=== PATIENT | female | born 1970 | race Caucasian/White ===

== ENCOUNTER → 2018-04-07 15:01 | Outpatient (CLI) | payer OTHER, SELFPAY ==
--- NOTE | 2018-04-07 | DI.MG.S_ITS ---
BILATERAL DIGITAL SCREENING MAMMOGRAM 3D/2D WITH CAD WITH AUGMENTATION: 04/07/2018 CLINICAL: Patient presents for routine screening. S/P bilateral augmentation. Family history of breast cancer. Comparison is made to exams dated: 02/04/2015 mammogram and 12/12/2011 mammogram - [facility]. The tissue of both breasts is heterogeneously dense. This may lower the sensitivity of mammography. Current study was also evaluated with a Computer Aided Detection (CAD) system. Bilateral breast implants are intact. No significant masses, calcifications, or other findings are seen in either breast. There has been no significant interval change. IMPRESSION: NEGATIVE There is no mammographic evidence of malignancy. A 1 year screening mammogram is recommended. This exam was interpreted at Station ID: [id number]. NOTE: For mammograms, a report in lay terms will be sent to the patient. Approximately 15% of breast malignancies will not be visualized mammographically. In the management of a palpable breast mass, a negative mammogram must not discourage biopsy of a clinically suspicious lesion. Electronically Signed By: Luther chowdary/frannie:04/07/2018 17:27:03 copy to: Benjamin Nails letter sent: Normal Exam ACR BI-RADS Category 1: Negative 3341F
== END ==
PROVIDERS: PCP Physician Assistant; Visit Provider Physician Assistant
DX: Z12.31 Encounter for screening mammogram for malignant neoplasm of breast (principal); Z80.3 Family history of malignant neoplasm of breast; Z98.82 Breast implant status
CPT/HCPCS: 77063; 77067

== ENCOUNTER → 2018-04-25 11:04 | Outpatient (CLI) | payer OTHER, SELFPAY | PROVIDERS: PCP Physician Assistant; Visit Provider Physician Assistant | DX: R19.4 Change in bowel habit (principal) | CPT/HCPCS: 87015; 87045; 87177; 87427; 87493; 87899 ==

== ENCOUNTER 2018-05-22 08:37 | Emergency (ER) | payer OTHER, SELFPAY ==
[2018-05-22 08:47] VITALS: BP 131/76; PULSE 76; RESP 16; TEMP 36.6; O2SAT 100; BMI 29.7
[2018-05-22 09:11] LABS: Bacteria Urine Moderate (10-30); Culture Indicated Urine Specimen Cultured; RBC Urine 5-10/HPF (0-5/HPF); WBC Urine 10-30/HPF (0-5/HPF)
--- NOTE | 2018-05-22 09:25 | ED_ITS ---
HPI - General Adult General Chief complaint: Dizziness Stated complaint: Dizzy,nausea Time Seen by Provider: 05/22/18 08:47 Source: patient Mode of arrival: ambulatory Limitations: no limitations History of Present Illness HPI narrative: patient is an otherwise healthy 48-year-old female here for evaluation of not feeling well and lightheadedness. She states that it started this morning. she states that when she moves her head around she feels like she is going to fall over. Denies any room spinning sensation. Generally just does not feel well. Started mesalamine last week for treatment of ulcerative col itis. She also states she is very thirsty. No change in bowel habits. She does have diarrhea. Does not have any dysuria. She states that she has had urinary tract infections in the past and she does not feel like she has 1 now. Related Data Home Medications Medication Instructions Recorded Confirmed dextroamphetamine-amphetamine 15 mg PO DAILY 05/22/18 05/22/18 levonorgestrel-ethinyl estrad 1 tab PO QPM 05/22/18 05/22/18 [Lessina] mesalamine 60 ml [place] BEDTIME 05/22/18 05/22/18 mesalamine [Lialda] 2.4 g PO DAILY 05/22/18 05/22/18 omeprazole 20 mg PO DAILY 05/22/18 05/22/18 Previous Rx's Medication Instructions Recorded valacyclovir 500 mg tablet 500 mg PO BID #10 tab 03/21/18 ondansetron 4 mg PO Q6-8H PRN #10 tab 05/22/18 Allergies Allergy/AdvReac Type Severity Reaction Status Date / Time No Known Drug Allergies Allergy Verified 05/22/18 10:10 Review of Systems Constitutional Reports fatigue, Denies fever(s) and Denies frequent falls Eyes Denies blurry vision and Denies diplopia ENT Ears, Nose, Mouth, and Throat: Denies vertigo, Reports dizziness, Denies nasal congestion, Reports disequilibrium, Denies tinnitus, Denies sore throat and Denies throat swelling Cardiovascular Denies chest pain, Denies syncope, Denies palpitations and Denies dyspnea Respiratory Denies cough and Denies dyspnea Gastrointestinal Gastrointestinal: Denies abdominal pain, Denies nausea and Denies vomiting Genitourinary Denies dysuria Musculoskeletal Denies myalgias and Denies arthralgias Integumentary/Breasts Denies rash Neurologic Denies vertigo, Reports dizziness, Denies syncope, Denies frequent falls, Denies paresthesias and Reports disequilibrium Endocrine Reports fatigue and Denies palpitations Hematologic/Lymphatic Denies easy bleeding and Denies easy bruising Allergic/Immunologic Denies throat swelling PFSH Medical History Ulcerative colitis (Acute) Surgical History History of breast augmentation Social History Smoking Status: Never smoker Social History Smoking Status: Never smoker Exam Initial Vital Signs Initial Vital Signs: Vital Signs Temperature 97.8 F 05/22/18 08:47 Pulse Rate 76 05/22/18 08:47 Respiratory Rate 16 05/22/18 08:47 Blood Pressure 131/76 05/22/18 08:47 Pulse Oximetry 100 05/22/18 08:47 Const General: cooperative, healthy appearing, comfortable, well developed, well groomed and No acute distress Orientation: alert, awake and oriented x3 HENMT Head: normal to inspection and normocephalic Ears: TM's normal bilaterally Nose: external nose normal Face and sinus: normal facial exam Mouth: oral mucosae normal Eyes Pupils: PERRL EOM: EOM intact bilaterally Resp Effort & Inspection: normal respiratory effort Auscultation: clear to auscultation bilaterally Cardio Rate: regular rate Rhythm: regular rhythm Pulses: radial pulses present GI Inspection: non-distended Palpation: soft and No tender Skin Rashes: no rashes Neuro General: alert, awake and oriented x3 Cranial Nerves: CN's II-XI intact bilaterally Cognition: normal cognition Speech: speech normal Gait: normal gait Motor: muscle tone normal throughout Sensory Exam: no sensory deficits noted Other: [place]-Hallpike maneuver negative bilateral Extrem General: normal to inspection and capillary refill normal Psych Appearance: grossly normal and well kempt Course Orders Ordered: ED Orders 05/22/18 08:48 EKG-12 Lead Stat 05/22/18 08:56 Urine Culture Stat Urine Microscopic Stat 05/22/18 10:10 Basic Metabolic Panel Stat Complete Blood Count AUTO DIFF Stat Test Serum,Qual Stat 05/22/18 11:32 CT head/brain wo con Stat 05/22/18 11:34 Influenza A and B by PCR Rapid Stat Discontinued Medications Sodium Chloride (Normal Saline 0.9%) 1,000 mls @ 1,000 mls/hr IV BOLUS ONE Stop: 05/22/18 10:37 Last Infusion: 05/22/18 11:25 Dose: 0 mls/hr Admin: 05/22/18 10:11 Dose: 1,000 mls/hr Meclizine HCl (Antivert) 25 mg PO NOW ONE Stop: 05/22/18 09:39 Last Admin: 05/22/18 10:11 Dose: 25 mg Ondansetron HCl (Zofran) 4 mg IV NOW ONE Stop: 05/22/18 11:27 Last Admin: 05/22/18 11:57 Dose: 4 mg Vital Signs - 8 hr 05/22/18 08:47 05/22/18 09:51 05/22/18 12:01 Temperature 97.8 F Pulse Rate 76 68 73 Respiratory Rate 16 17 19 Blood Pressure 131/76 Blood Pressure [Left Arm] 149/87 H 118/74 Pulse Oximetry 100 100 100 Medical Decision Making Lab Data Lab results reviewed: Yes I reviewed the patient's lab results. Result diagrams: 05/22/18 10:10 05/22/18 10:10 Lab Results 05/22/18 05/22/18 05/22/18 Range/Units 08:56 10:10 10:10 WBC 5.2 (4.5-11.0) X10^3/uL RBC 4.42 (4.0-5.2) X10^6/uL Hgb 14.5 (12.0-16.0) g/dL Hct 42.4 (36-46) % MCV 95.9 (80-100) fL MCH 32.7 (26-34) PG MCHC 34.1 (30-36) % RDW 12.6 (11.6-14.8) % Plt Count 306 (150-400) X10^3/uL Neut % (Auto) 68.2 (50-75) % Lymph % (Auto) 23.8 L (25-40) % [place] % (Auto) 5.9 (3-14) % Eos % (Auto) 1.6 L (2-4) % Baso % (Auto) 0.5 (0-2) % Neut # (Auto) 3600 (0968-2010) /uL Lymph # (Auto) 1200 (6848-6098) /uL [place] # (Auto) 300 (0-900) /uL Eos # (Auto) 100 (0-450) /uL Baso # (Auto) 0 (0-100) /uL Sodium 137 (137-145) mmol/L Potassium 4.0 (3.4-5.1) mmol/L Chloride 102 (98-107) mmol/L Carbon Dioxide 24 (22-32) mmol/L BUN 16 (7-17) mg/dL Creatinine 0.70 (0.52-1.04) mg/dL Estimated GFR > 60.0 (>60) mL/min BUN/Creatinine Ratio 22.9 H (6-22) Glucose 105 H (70-100) mg/dL Calcium 9.0 (8.4-10.2) mg/dL Serum , Qual (Negative) Urine RBC 5-10/hpf H (0-5/HPF) Urine WBC 10-30/hpf H (0-5/HPF) Urine Bacteria Moderate (10-30) H (None) Ur Culture Indicated? Specimen cultured Influenza A & B (PCR) (Negative) 05/22/18 05/22/18 Range/Units 10:10 11:34 WBC (4.5-11.0) X10^3/uL RBC (4.0-5.2) X10^6/uL Hgb (12.0-16.0) g/dL Hct (36-46) % MCV (80-100) fL MCH (26-34) PG MCHC (30-36) % RDW (11.6-14.8) % Plt Count (150-400) X10^3/uL Neut % (Auto) (50-75) % Lymph % (Auto) (25-40) % [place] % (Auto) (3-14) % Eos % (Auto) (2-4) % Baso % (Auto) (0-2) % Neut # (Auto) (0923-2522) /uL Lymph # (Auto) (1818-5484) /uL [place] # (Auto) (0-900) /uL Eos # (Auto) (0-450) /uL Baso # (Auto) (0-100) /uL Sodium (137-145) mmol/L Potassium (3.4-5.1) mmol/L Chloride (98-107) mmol/L Carbon Dioxide (22-32) mmol/L BUN (7-17) mg/dL Creatinine (0.52-1.04) mg/dL Estimated GFR (>60) mL/min BUN/Creatinine Ratio (6-22) Glucose (70-100) mg/dL Calcium (8.4-10.2) mg/dL Serum , Qual Negative (Negative) Urine RBC (0-5/HPF) Urine WBC (0-5/HPF) Urine Bacteria (None) Ur Culture Indicated? Influenza A & B (PCR) Negative (Negative) Point of Care Testing Test Results Negative Urine Dip Bedside Urine Glucose Negative Bedside Urine Bilirubin + 1 Bedside Urine Ketone - Negative Urine Specific [place] 1.030 Bedside Urine Occult Blood ++ Bedside Urine pH 5.5 Bedside Urine Protein +/- 15 Bedside Urine Urobilinogen - Negative Bedside Urine Nitrite - Negative Bedside Urine Leukocytes +++ 500 Esterase Point of care testing: Point of Care Testing Test Results Negative Urine Dip Bedside Urine Glucose Negative Bedside Urine Bilirubin + 1 Bedside Urine Ketone - Negative Urine Specific [place] 1.030 Bedside Urine Occult Blood ++ Bedside Urine pH 5.5 Bedside Urine Protein +/- 15 Bedside Urine Urobilinogen - Negative Bedside Urine Nitrite - Negative Bedside Urine Leukocytes +++ [address] scan - head: Radiologist's impression: Patient: Michelle Santos AMR#: [id number] : 1970Acct:[id number] Age/Sex: 48 / FDate of Service: 05/22/18 Loc: ED Accession Number: [id number] Procedure: CT head/brain wo con Ordering Provider: Keegan Eaton D.O. PROCEDURE: CT HEAD/BRAIN WO CON INDICATIONS: headache TECHNIQUE: Noncontrast 4.5 mm thick angled axial sections acquired from the foramen magnum to the vertex, with coronal and sagittal reformats. For radiation dose reduction, the following was used: automated exposure control, adjustment of mA and/or kV according to patient size. COMPARISON: None. FINDINGS: Image quality: Excellent. CSF spaces: Basal cisterns are patent. No extra-axial fluid collections. Ventricles are normal in size and shape. Brain: No midline shift. No intracranial masses or hemorrhage. Frankel-white matter interface is normal. Skull and face: Calvarium and visualized facial bones are intact, without suspicious lesions. Sinuses: Visualized sinuses and mastoids are clear. IMPRESSION: Normal for age, source of current headache symptoms is not seen. Dictated by: Channing Crouch M.D. on 05/22/2018 at 11:47 Approved by: Channing Crouch M.D. on 05/22/2018 at 11:47 ECG Data Attestation: I personally reviewed and interpreted this ECG as follows: Prior ECG tracings: not available for review Interpretation: sinus rhythm ventricular rate is 65 normal axis normal QRS Normal QTC no ST T wave changes MDM Narrative Medical decision making narrative: patient with a nonfocal neurologic exam. Head CT is unremarkable. Labs unremarkable. Urinalysis is somewhat concerning for urinary tract infection however the patient states that she has had urinary tract infections in the past and this does not feel like a urinary tract infection. Will hold on antibiotics for now and wait for a urine culture to return. Informed her that if the culture is positive we would call in a prescription for antibiotics for her. I have low suspicion for central neurologic process. Will hold on further testing for now to include a lumbar puncture. Patient was given return precautions. She expressed understanding and agreement with plan. Discharge Plan Departure Patient Disposition: Home Clinical Impression: Dizziness Instructions: DI for Dizziness-Nonvertigo Activity Restrictions/Additional Instructions: a urine culture is pending today. We will call you in the next couple days if we need to start Uon antibiotics. Contact your primary care doctor for a fol low-up. Return to the emergency department for any new or worsening symptoms Prescriptions: New ondansetron 4 mg tablet,disintegrating 4 mg PO Q6-8H PRN (Reason: nausea and vomiting) Qty: 10 RF: 0 No Action valacyclovir 500 mg tablet 500 mg PO BID Qty: 10 RF: 3 mesalamine 4 gram/60 mL enema 60 ml [place] BEDTIME RF: 0 levonorgestrel-ethinyl estrad [Lessina] 0.1-20 mg-mcg tablet 1 tab PO QPM RF: 0 omeprazole 20 mg capsule,delayed release(DR/EC) 20 mg PO DAILY RF: 0 dextroamphetamine-amphetamine 15 mg capsule,extended release 24hr 15 mg PO DAILY RF: 0 mesalamine [Lialda] 1.2 gram tablet,delayed release (DR/EC) 2.4 g PO DAILY RF: 0 Referrals: Becki Alvarez PA-C [Primary Care Provider] -
[2018-05-22 09:51] VITALS: BP 149/87; PULSE 68; RESP 17; O2SAT 100
[2018-05-22] MEDS: MECLIZINE HCL 12.5 MG TABLET 25 MG PO (10:11)
[2018-05-22] MEDS: SODIUM CHLORIDE 0.9% 1,000 ML 1000 ML IV (10:11)
[2018-05-22 10:20] LABS: Add Manual Diff / Slide Review NO; Basophils Absolute Auto 0 /uL (0-100); Basophils Percent Auto 0.5 % (0-2); Eosinophils Absolute Auto 100 /uL (0-450); Eosinophils Percent Auto 1.6 % (2-4); Hematocrit 42.4 % (36-46); Hemoglobin 14.5 g/dL (12.0-16.0); Lymphocytes Absolute Auto 1200 /uL (1100-4500); Lymphocytes Percent Auto 23.8 % (25-40); Mean Corpuscular HGB Conc 34.1 % (30-36); Mean Corpuscular Hemoglobin 32.7 PG (26-34); Mean Corpuscular Volume 95.9 fL (80-100); Monocytes Absolute Auto 300 /uL (0-900); Monocytes Percent Auto 5.9 % (3-14); Neutrophils Absolute Auto 3600 /uL (1500-7000); Neutrophils Percent Auto 68.2 % (50-75); Platelet Count 306 X10^3/uL (150-400); Red Blood Cell Count 4.42 X10^6/uL (4.0-5.2); Red Cell Distribution Width 12.6 % (11.6-14.8); White Blood Cell Count 5.2 X10^3/uL (4.5-11.0)
[2018-05-22 10:29] LABS: BUN Creatinine Ratio 22.9 (6-22); Blood Urea Nitrogen 16 mg/dL (7-17); Carbon Dioxide 24 mmol/L (22-32); Chloride 102 mmol/L (98-107); Estimated Glomerular Filt Rate > 60.0 mL/min (>60); Glucose 105 mg/dL (70-100); HEMOLYSIS < 15 (0-50); Sodium 137 mmol/L (137-145)
[2018-05-22 10:47] LABS: Pregnancy Test Serum,Qual Negative (Negative)
--- NOTE | 2018-05-22 11:32 | DI.CT.S_ITS ---
PROCEDURE: CT HEAD/BRAIN WO CON INDICATIONS: headache TECHNIQUE: Noncontrast 4.5 mm thick angled axial sections acquired from the foramen magnum to the vertex, with coronal and sagittal reformats. For radiation dose reduction, the following was used: automated exposure control, adjustment of mA and/or kV according to patient size. COMPARISON: None. FINDINGS: Image quality: Excellent. CSF spaces: Basal cisterns are patent. No extra-axial fluid collections. Ventricles are normal in size and shape. Brain: No midline shift. No intracranial masses or hemorrhage. Frankel-white matter interface is normal. Skull and face: Calvarium and visualized facial bones are intact, without suspicious lesions. Sinuses: Visualized sinuses and mastoids are clear. IMPRESSION: Normal for age, source of current headache symptoms is not seen. Dictated by: Channing Crouch M.D. on 05/22/2018 at 11:47 Approved by: Channing Crouch M.D. on 05/22/2018 at 11:47
[2018-05-22 11:56] LABS: Influenza A and B by PCR Rapid Negative (Negative)
[2018-05-22] MEDS: ONDANSETRON 4 MG/2 ML INJ IV (11:57)
[2018-05-22 12:01] VITALS: BP 118/74; PULSE 73; RESP 19; O2SAT 100
[2018-05-22 12:39] VITALS: TEMP 36.8
[2018-05-22 12:58] VITALS: BP 130/67; PULSE 80; RESP 16; O2SAT 99
== END 2018-05-22 12:58 | disposition home or self-care (01) ==
PROVIDERS: Emergency Provider Emergency Medicine; PCP Physician Assistant
DX: R42 Dizziness and giddiness (principal); I49.8 Other specified cardiac arrhythmias
CPT/HCPCS: 36591; 70450; 80048; 81003; 81015; 81025; 84703; 85025; 87086; 87400; 93005; 93010; 96361; 96374; 99283; 99285; J2405

== ENCOUNTER → 2018-09-15 12:00 | Outpatient (CLI) | payer OTHER, SELFPAY ==
[2018-09-15 12:09] LABS: Bacteria Urine None Seen
[2018-09-15 12:27] LABS: Add Manual Diff / Slide Review NO; Appearance Urine UA CLEAR; Basophils Absolute Auto 0 /uL (0-100); Basophils Percent Auto 0.4 % (0-2); Bilirubin Urine UA NEGATIVE (NEGATIVE); Color Urine UA YELLOW; Eosinophils Absolute Auto 100 /uL (0-450); Eosinophils Percent Auto 2.5 % (2-4); Glucose Urine UA NEGATIVE (Negative); Hematocrit 40.2 % (36-46); Hemoglobin 13.7 g/dL (12.0-16.0); Ketones Urine UA NEGATIVE (NEGATIVE); Leukocyte Esterase Urine UA NEGATIVE (NEGATIVE); Lymphocytes Absolute Auto 1800 /uL (1100-4500); Lymphocytes Percent Auto 30.7 % (25-40); Mean Corpuscular Hemoglobin 32.5 PG (26-34); Mean Corpuscular Volume 95.5 fL (80-100); Monocytes Absolute Auto 400 /uL (0-900); Monocytes Percent Auto 6.1 % (3-14); Neutrophils Absolute Auto 3500 /uL (1500-7000); Neutrophils Percent Auto 60.3 % (50-75); Nitrite Urine UA NEGATIVE (Negative); Occult Blood Urine UA TRACE-INTACT (Negative); Platelet Count 278 X10^3/uL (150-400); Protein Urine UA NEGATIVE (Negative); Red Blood Cell Count 4.21 X10^6/uL (4.0-5.2); Red Cell Distribution Width 12.5 % (11.6-14.8); Urobilinogen Urine UA 0.2 E.U./dL (0.2); White Blood Cell Count 5.8 X10^3/uL (4.5-11.0)
[2018-09-15 12:48] LABS: Culture Indicated Urine Cult Not Indicated; RBC Urine 0-1/HPF (0-5/HPF); Squamous Epithelial Cell Urine 0-1 /HPF (0-5/HPF); WBC Urine 0-1/HPF (0-5/HPF)
[2018-09-15 12:50] LABS: Erythrocyte Sedimentation Rate 2 MM/HR (0-20)
[2018-09-15 13:34] LABS: Alanine Aminotransferase 35 IU/L (9-52); Albumin 4.4 g/dL (3.5-5.0); Albumin Globulin Ratio 1.3 (1.0-2.8); Alkaline Phosphatase 88 U/L (38-126); Aspartate Aminotransferase 38 IU/L (14-36); BUN Creatinine Ratio 21.4 (6-22); Bilirubin Total 0.6 mg/dL (0.2-1.3); Blood Urea Nitrogen 15 mg/dL (7-17); Calcium 9.2 mg/dL (8.4-10.2); Carbon Dioxide 25 mmol/L (22-32); Chloride 105 mmol/L (98-107); Estimated Glomerular Filt Rate > 60.0 mL/min (>60); Globulin 3.4 g/dL (1.7-4.1); Glucose 93 mg/dL (70-100); HEMOLYSIS < 15 (0-50); Potassium 3.9 mmol/L (3.4-5.1); Sodium 141 mmol/L (137-145); Total Protein 7.8 g/dL (6.3-8.2)
[2018-09-15 13:35] LABS: Rheumatoid Factor < 8.6 IU/mL (<12.0)
[2018-09-15 13:57] LABS: TSH w/ Reflex to FT4 1.13 uIU/mL (0.47-4.68)
[2018-09-17 20:43] LABS: ANA Screen, IFA Positive (Negative); ANA Titer 1:40 titer (<1:40)
[2018-09-19 12:09] LABS: CCP Antibodies IgG/IgA 3
== END ==
PROVIDERS: Visit Provider Internal Medicine
DX: M19.90 Unspecified osteoarthritis, unspecified site (principal); R68.83 Chills (without fever); K51.211 Ulcerative (chronic) proctitis with rectal bleeding
CPT/HCPCS: 36415; 80053; 81001; 84443; 85025; 85651; 86038; 86140; 86200; 86430

== ENCOUNTER → 2018-09-17 08:06 | Outpatient (CLI) | payer OTHER, SELFPAY ==
--- NOTE | 2018-09-17 | DI.MRI.S_ITS ---
PROCEDURE: MR HEAD/BRAIN WO/W CON INDICATIONS: NONINTRACTABLE EPISODIC HEADACHE TECHNIQUE: Noncontrast axial T1 spin echo, axial T2 fast spin echo, sagittal and axial FLAIR, coronal T2 fast spin echo, axial gradient echo, axial diffusion and ADC through the brain. After the administration of contrast, axial and coronal 3D VIBE or T1 spin echo with fat saturation through the brain. COMPARISON: None. FINDINGS: Image quality: Excellent. CSF Spaces: Basal cisterns are patent. No extra-axial fluid collections. Ventricles are normal in size and shape. Brain: No midline shift. No intracranial bleeds or masses. No abnormal intracranial enhancement. The brainstem appears normal. Diffusion-weighted images demonstrate no acute ischemic insults. No chronic ischemic insults. Normal intravascular flow voids are present. Skull and face: Calvarial marrow is normal in signal. Orbits appear normal. Sinuses: Mild left maxillary sinus disease. Mastoids clear. IMPRESSION: No abnormal enhancement. No acute intracranial signal abnormality. Mild left maxillary sinus disease. Dictated by: Bertrand Horne M.D. on 09/17/2018 at 10:17 Approved by: Bertrand Horne M.D. on 09/17/2018 at 10:30
== END ==
PROVIDERS: PCP Internal Medicine; Visit Provider Internal Medicine
DX: R51 Headache (principal); J32.0 Chronic maxillary sinusitis
CPT/HCPCS: 70553; A9579

== ENCOUNTER → 2019-06-10 14:29 | Outpatient (CLI) | payer OTHER, SELFPAY ==
--- NOTE | 2019-06-10 14:30 | DI.MRI.S_ITS ---
PROCEDURE: MR CERVICAL SPINE WO CON INDICATIONS: Posterior skull, upper neck pain TECHNIQUE: Noncontrast sagittal T1 spin echo and T2 fast spin echo, sagittal STIR, foraminal oblique sagittal T2 fast spin echo, and axial gradient echo or T2 fast spin echo through the cervical spine. COMPARISON: [facility], US, SOFT TISSUE HEAD OR NECK, 04/03/2013, 12:23. [facility], MR, MR HEAD/BRAIN WO/W CON, 09/17/2018, 8:32. [facility], CT, CT HEAD/BRAIN WO CON, 05/22/2018, 11:24. FINDINGS: Image quality: Excellent. Alignment and Curvature: There is mild reversal of the normal cervical lordosis, with the apex at the C5 level. Minimal anterolisthesis is seen at C3-C4. There is minimal retrolisthesis seen at C5-C6 and at C6-C7. Bone Marrow: Marrow demonstrates normal overall signal. Spinal Cord: Visualized spinal cord has normal size and signal. No cerebellar tonsillar herniation. Paraspinous Soft Tissues: No paravertebral masses. Prevertebral soft tissues are normal in thickness. C2-C3: No significant abnormality is seen. C3-C4: The disc height is well-preserved. Loss of disc signal is seen at this level. A mild degree of generalized disc osteophyte complex is seen. Moderate bilateral neural foraminal narrowing is seen. Mild central canal narrowing is seen. C4-C5: Moderate loss of disc height is seen. Loss of disc signal is seen. Mild to moderate disc osteophyte complex is seen, which is eccentric to the left side. There is moderate to severe left-sided and mild right-sided neural foraminal narrowing seen. Mild central canal narrowing is seen. C5-C6: Moderate loss of disc height is seen. Loss of disc signal is seen. Mild facet joint hypertrophy is seen. There is moderate left-sided and mild right-sided neural foraminal narrowing seen. Mild central canal narrowing is seen. C6-C7: Moderate loss of disc height is seen. Loss of disc signal is seen. Moderate generalized disc osteophyte complex is seen. There is a central disc osteophyte protrusion seen. Mild facet joint hypertrophy is seen. There is at least moderate bilateral neural foraminal narrowing seen. Moderate central canal narrowing is seen. C7-T1: No significant abnormality is seen. IMPRESSION: Multiple levels of cervical spine degenerative change are seen, which are most prominent at C5-C6 and C6-C7. Dictated by: Naren Roque M.D. on 06/10/2019 at 14:51 Approved by: Naren Roque M.D. on 06/10/2019 at 14:55
== END ==
PROVIDERS: PCP Internal Medicine; Referring Provider Internal Medicine; Visit Provider Internal Medicine
DX: M54.2 Cervicalgia (principal); M47.812 Spondylosis without myelopathy or radiculopathy, cervical region; G90.09 Other idiopathic peripheral autonomic neuropathy
CPT/HCPCS: 72141

== ENCOUNTER → 2020-02-02 08:46 | Outpatient (CLI) | payer OTHER, SELFPAY ==
[2020-02-02 10:47] LABS: Add Manual Diff / Slide Review NO; Basophils Absolute Auto 0 /uL (0-100); Basophils Percent Auto 0.4 % (0-2); Eosinophils Absolute Auto 200 /uL (0-450); Eosinophils Percent Auto 2.8 % (2-4); Hematocrit 39.4 % (36-46); Hemoglobin 13.5 g/dL (12.0-16.0); Lymphocytes Absolute Auto 2400 /uL (1100-4500); Lymphocytes Percent Auto 39.1 % (25-40); Mean Corpuscular HGB Conc 34.2 % (30-36); Mean Corpuscular Hemoglobin 32.6 PG (26-34); Mean Corpuscular Volume 95.3 fL (80-100); Monocytes Absolute Auto 400 /uL (0-900); Monocytes Percent Auto 6.2 % (3-14); Neutrophils Absolute Auto 3100 /uL (1500-7000); Neutrophils Percent Auto 51.5 % (50-75); Platelet Count 298 X10^3/uL (150-400); Red Blood Cell Count 4.14 X10^6/uL (4.0-5.2); Red Cell Distribution Width 12.6 % (11.6-14.8); White Blood Cell Count 6.1 X10^3/uL (4.5-11.0)
[2020-02-02 11:21] LABS: Alanine Aminotransferase 55 IU/L (<35); Albumin 4.1 g/dL (3.5-5.0); Albumin Globulin Ratio 1.3 (1.0-2.8); Alkaline Phosphatase 114 U/L (38-126); Aspartate Aminotransferase 44 IU/L (14-36); BUN Creatinine Ratio 16.9 (6-22); Bilirubin Total 0.5 mg/dL (0.2-1.3); Blood Urea Nitrogen 11 mg/dL (7-17); Calcium 8.6 mg/dL (8.4-10.2); Carbon Dioxide 24 mmol/L (22-32); Chloride 106 mmol/L (98-107); Cholesterol 158 mg/dL (140-199); Estimated Glomerular Filt Rate > 60.0 mL/min (>60); Globulin 3.2 g/dL (1.7-4.1); Glucose 97 mg/dL (70-100); HDL Cholesterol 57 mg/dL (40-60); HEMOLYSIS < 15 (0-50); LDL Cholesterol Calculated 81 mg/dL (<100); Potassium 4.4 mmol/L (3.4-5.1); Sodium 137 mmol/L (137-145); Total Protein 7.3 g/dL (6.3-8.2); Triglycerides 99 mg/dL (35-150)
[2020-02-02 11:30] LABS: Vitamin D 25 Hydroxy (D3) 29.9 ng/mL (30.0-100.0)
[2020-02-04 23:23] LABS: ANA Screen, IFA Positive (.)
== END ==
PROVIDERS: PCP Internal Medicine; Referring Provider Internal Medicine; Visit Provider Internal Medicine
DX: R41.840 Attention and concentration deficit (principal); K51.911 Ulcerative colitis, unspecified with rectal bleeding
CPT/HCPCS: 36415; 80053; 80061; 82306; 84443; 85025; 86038

== ENCOUNTER → 2020-02-16 09:38 | Outpatient (CLI) | payer OTHER, SELFPAY ==
[2020-02-16 10:35] LABS: Erythrocyte Sedimentation Rate 8 MM/HR (0-20)
[2020-02-16 10:50] LABS: Alanine Aminotransferase 62 IU/L (<35); Aspartate Aminotransferase 48 IU/L (14-36); C-Reactive Protein Quant 0.8 mg/dL (<1.0); Gamma Glutamyl Transpeptidase 21 U/L (12-43)
[2020-02-16 11:28] LABS: Vitamin B12 638 pg/mL (239-931)
[2020-02-16 16:59] LABS: Hep C Virus Ab w/Reflex Quant NEGATIVE s/c (NEGATIVE)
[2020-02-17 04:36] LABS: Complement C3 136 mg/dL (82-167); RPR Screen Non Reactive (Non Reactive)
[2020-02-17 18:07] LABS: ANA Screen, IFA Positive (.)
[2020-02-18 15:08] LABS: Albumin 3.9 g/dL (2.9-4.4); Alpha-1-Globulin 0.3 g/dL (0.0-0.4); Alpha-2-Globulin 0.7 g/dL (0.4-1.0); Gamma Globulin 1.3 g/dL (0.4-1.8); Globulin Total 3.4 g/dL (2.2-3.9); Immunoglobulin A, Serum 177 mg/dL (87-352); Immunoglobulin G,Serum 1403 mg/dL (586-1602); Immunoglobulin M, Serum 55 mg/dL (26-217); Protein, Total 7.3 g/dL (6.0-8.5)
[2020-02-19 02:26] LABS: Complement Total CH50 > 60 U/mL (>41)
[2020-02-19 14:07] LABS: Cytoplasmic C-ANCA <1:20 titer (Neg:<1:20); Perinuclear P-ANCA <1:20 titer (Neg:<1:20)
== END ==
PROVIDERS: PCP Internal Medicine; Referring Provider Internal Medicine; Visit Provider Internal Medicine
DX: G90.09 Other idiopathic peripheral autonomic neuropathy (principal); R23.4 Changes in skin texture; R76.8 Other specified abnormal immunological findings in serum; R74.01 Elevation of levels of liver transaminase levels
CPT/HCPCS: 36415; 82595; 82607; 82784; 82977; 84155; 84165; 84450; 84460; 85651; 86038; 86140; 86160; 86162; 86256; 86334; 86592; 86617; 86631; 86632; 86803

== ENCOUNTER → 2020-02-26 15:47 | Outpatient (CLI) | payer OTHER, SELFPAY ==
--- NOTE | 2020-02-26 | DI.MG.S_ITS ---
BILATERAL DIGITAL SCREENING MAMMOGRAM 3D/2D WITH CAD WITH AUGMENTATION: 02/26/2020 CLINICAL: Routine screening. Comparison is made to exams dated: 04/07/2018 mammogram, 02/04/2015 mammogram, and 12/12/2011 mammogram - [facility]. The tissue of both breasts is heterogeneously dense. This may lower the sensitivity of mammography. Current study was also evaluated with a Computer Aided Detection (CAD) system. Bilateral breast implants are intact. No significant masses, calcifications, or other findings are seen in either breast. There has been no significant interval change. IMPRESSION: NEGATIVE There is no mammographic evidence of malignancy. A 1 year screening mammogram is recommended. This exam was interpreted at Station ID: [id number]. NOTE: For mammograms, a report in lay terms will be sent to the patient. Approximately 15% of breast malignancies will not be visualized mammographically. In the management of a palpable breast mass, a negative mammogram must not discourage biopsy of a clinically suspicious lesion. Electronically Signed By: Luther chowdary/frannie:02/26/2020 16:41:36 copy to: Benjamin Nails letter sent: Normal Exam ACR BI-RADS Category 1: Negative 3341F
[2020-02-27 17:08] LABS: Antiribosomal P Antibodies <0.2 AI (0.0-0.9); Centromere B Antibody 1.6 AI (0.0-0.9); DNA (DS) Antibody 1 IU/mL (0-9); JO-1 Antibody <0.2 AI (0.0-0.9); SS A Ro Sjogrens Antibody < 0.2 AI (0.0-0.9); SS B La Sjogrens Antibody < 0.2 AI (0.0-0.9); Scleroderma 70 Antibody < 0.2 AI (0.0-0.9)
== END ==
PROVIDERS: PCP Internal Medicine; Referring Provider Internal Medicine; Visit Provider Internal Medicine
DX: Z12.31 Encounter for screening mammogram for malignant neoplasm of breast (principal); R76.8 Other specified abnormal immunological findings in serum
CPT/HCPCS: 36415; 77063; 77067; 83516; 86225; 86235

== ENCOUNTER → 2020-05-17 12:18 | Outpatient (CLI) | payer OTHER, SELFPAY ==
--- NOTE | 2020-05-17 | DI.MRI.S_ITS ---
PROCEDURE: MR HEAD/BRAIN WO/W CON INDICATIONS: Osteoarthritis cervical spine,Right arm numbness TECHNIQUE: Noncontrast axial T1 spin echo, axial T2 fast spin echo, sagittal and axial FLAIR, coronal T2 fast spin echo, axial gradient echo, axial diffusion and ADC through the brain. After the administration of contrast, axial and coronal 3D VIBE or T1 spin echo with fat saturation through the brain. COMPARISON: [facility], , MR HEAD/BRAIN WO/W CON, 09/17/2018, 8:32. FINDINGS: Image quality: Excellent. CSF Spaces: Basal cisterns are patent. No extra-axial fluid collections. Ventricles are normal in size and shape. Brain: No midline shift. No intracranial bleeds or masses. No abnormal intracranial enhancement. The brainstem appears normal. Diffusion-weighted images demonstrate no acute ischemic insults. No chronic ischemic insults. Normal intravascular flow voids are present. Skull and face: Calvarial marrow is normal in signal. Orbits appear normal. Sinuses: Left maxillary mucous retention cyst or polyp. IMPRESSION: No evidence of acute ischemia. No acute intracranial signal abnormality or enhancement. Dictated by: Bertrand Horne M.D. on 05/17/2020 at 13:55 Approved by: Bertrand Horne M.D. on 05/17/2020 at 13:59
--- NOTE | 2020-05-17 | DI.MRI.S_ITS ---
PROCEDURE: MR CERVICAL SPINE WO/W CON INDICATIONS: Osteoarthritis cervical spine,Right arm numbness TECHNIQUE: Noncontrast sagittal T1 spin echo and T2 fast spin echo, sagittal STIR, sagittal PD fast spin echo, foraminal oblique sagittal T2 fast spin echo, axial gradient echo or T2 fast spin echo through the cervical spine. After the administration of contrast, sagittal and axial T1 spin echo with fat saturation through the cervical spine. COMPARISON: None. FINDINGS: Image quality: Excellent. Alignment and curvature: Reversal of the normal cervical lordosis. Grade 1 retrolisthesis of C5 on C6 and C6 on C7. Marrow: No fracture. Multilevel degenerative endplate sclerosis and spurring. Diffuse facet arthropathy. Spinal cord: Visualized spinal cord is normal in size, without white matter lesions. No suspicious intramedullary enhancement. No cerebellar tonsillar herniation. Paraspinous soft tissues: No paravertebral masses or suspicious enhancement. C2-C3: Normal appearance. C3-C4: No definite canal stenosis. Moderate right foraminal narrowing with nerve root compression. Minimal left foraminal stenosis C4-C5: No definite canal narrowing. No right foraminal stenosis. Severe left foraminal stenosis with nerve root compression. C5-C6: No canal narrowing. No right foraminal stenosis. Severe left foraminal narrowing with nerve root compression. C6-C7: Mild central canal narrowing. Mild right foraminal stenosis. Severe left foraminal stenosis with nerve root compression. C7-T1: Mild bilateral foraminal stenoses. No canal narrowing. IMPRESSION: Reversal of the normal cervical lordosis. Multilevel spondylolisthesis as above. Diffuse bilateral foraminal stenoses as detailed above by spinal level, most pronounced on the left at C4-C5, C5-C6 and C6-C7. Moderate right C3-C4 foraminal stenosis. No suspicious enhancement. No cord signal changes to suggest demyelination Dictated by: Bertrand Horne M.D. on 05/17/2020 at 15:23 Approved by: Bertrand Horne M.D. on 05/17/2020 at 15:30
== END ==
PROVIDERS: PCP Internal Medicine; Referring Provider Psychiatry & Neurology Neurology; Visit Provider Psychiatry & Neurology Neurology
DX: M47.812 Spondylosis without myelopathy or radiculopathy, cervical region (principal); R20.0 Anesthesia of skin; M43.12 Spondylolisthesis, cervical region; M48.02 Spinal stenosis, cervical region
CPT/HCPCS: 70553; 72156

== ENCOUNTER → 2020-08-23 09:48 | Outpatient (CLI) | payer OTHER, SELFPAY ==
--- NOTE | 2020-08-23 09:51 | DI.US.S_ITS ---
PROCEDURE: US THYROID COMPARISON: None. INDICATIONS: LYMPHANDENOPATHY FINDINGS: The right thyroid lobe measures 1.4 x 1.5 x 5.9 cm and the left measures 1.3 x 1.7 x 5.5 cm. The isthmus measures 3 mm in thickness, and there is a 3 mm inferior right thyroid nodule which is wider than tall, spongiform, hypoechoic, smoothly marginated without calcifications. IMPRESSION: The 3 mm nodule at the inferior right thyroid lobe yields a thyroid score of 2, TI-radsrads 2, very small size, no follow-up recommended. No enlarged lymph node is found. Dictated by: Channing Crouch M.D. on 08/23/2020 at 13:58 Approved by: Channing Crouch M.D. on 08/23/2020 at 14:04
== END ==
PROVIDERS: PCP Physician Assistant; Referring Provider Physician Assistant; Visit Provider Physician Assistant
DX: E04.1 Nontoxic single thyroid nodule (principal); M54.2 Cervicalgia
CPT/HCPCS: 76536

== ENCOUNTER 2021-08-14 20:43 | Emergency (ER) | payer OTHER, SELFPAY ==
--- NOTE | 2021-08-14 | DI.US.S_ITS ---
PROCEDURE: US PERIPH VENOUS LOW EXTREM LT INDICATIONS: LT CALF PAIN TECHNIQUE: Real-time imaging, as well as color and pulse Doppler interrogation, were performed of the lower extremity deep veins from the inguinal ligament to the popliteal fossa. COMPARISON: None. FINDINGS: The common femoral, femoral and popliteal veins are normally compressible, and free of intraluminal thrombus. Color and pulse Doppler demonstrate normal phasic intraluminal flow. There is normal augmentation response to distal compression maneuver. IMPRESSION: 1. No evidence of deep venous thrombosis in the left lower extremity. Dictated by: Luther Calvillo M.D. on 08/14/2021 at 22:19 Approved by: Luther Calvillo M.D. on 08/14/2021 at 22:20
[2021-08-14 21:01] VITALS: BP 134/75; PULSE 89; RESP 22; TEMP 36.7; O2SAT 99
--- NOTE | 2021-08-14 21:20 | DI.RAD.S_ITS ---
PROCEDURE: XR ANKLE LT MIN 3V INDICATIONS: fx known, increased pain today, ortho apt tomorrow TECHNIQUE: 3 views of the ankle were acquired. COMPARISON: None. FINDINGS: Bones: There is a mildly displaced fracture of the lateral malleolus inferiorly. There is also a curvilinear lucency through the base of the 5th metatarsal suspicious for a nondisplaced fracture. Ankle mortise is normally aligned. No suspicious bony lesions. Soft tissues: There is periarticular soft tissue swelling most prominent laterally. No tibiotalar joint effusion. Achilles tendon appears normal. IMPRESSION: 1. Mildly displaced fracture of the lateral malleolus inferiorly. 2. Nondisplaced fracture of the base of the 5th metatarsal. Dictated by: Luther Calvillo M.D. on 08/14/2021 at 22:27 Approved by: Luther Calvillo M.D. on 08/14/2021 at 22:34
[2021-08-14] MEDS: IBUPROFEN 400 MG TABLET PO (22:13)
[2021-08-14] MEDS: OXYCODONE/ACETAMINOPHEN 5/325 TABLET 2 TAB PO (22:13)
--- NOTE | 2021-08-14 23:53 | ED_ITS ---
HPI - Extremity Injury (Lower) General Chief Complaint: Extremity Injury, Lower Stated Complaint: LEFT LEG CALF PAIN Time Seen by Provider: 08/14/21 21:10 Source: patient Mode of arrival: Wheelchair History of Present Illness HPI Narrative: 51-year-old woman who broke her ankle approximately 4 days ago and lost status has a follow-up appointment scheduled with Orthopedics tomorrow in the meantime has a posterior splint with stirrup and is having dramatically increased pain in the midportion of her calf on that affected leg. She comes in for further evaluation. She has noticed fevers, significantly increased swelling or redness from the area. She has no shortness of breath cough or dyspnea. Related Data Home Medications Medication Instructions Recorded Confirmed dextroamphetamine-amphetamine ER 15 mg PO DAILY 05/22/18 04/15/20 15 mg 24hr capsule,extend release mesalamine 1.2 gram tablet,delayed 2.4 g PO DAILY 05/22/18 04/15/20 release mesalamine 4 gram/60 mL enema 60 ml ME BEDTIME 05/22/18 04/15/20 omeprazole 20 mg capsule,delayed 20 mg PO DAILY 05/22/18 04/15/20 release Previous Rx's Medication Instructions Recorded acyclovir 400 mg tablet 400 mg PO BID #60 tab 05/06/20 levonorgestrel-ethinyl estradiol See Rx Instructions .ROUTE 06/22/21 0.1 mg-20 mcg tablet (Vienva) .COMPLEX #84 tab Allergies Allergy/AdvReac Type Severity Reaction Status Date / Time No Known Drug Allergies Allergy Verified 04/15/20 15:27 Review of Systems Review of Systems Narrative: Remainder of complete review of systems is otherwise unremarkable except for that included in the HPI. Patient History Medical History Ulcerative colitis Vaginal delivery Surgical History History of breast augmentation Social History Smoking Status: Never smoker Smoking Status: Never smoker alcohol intake frequency: 0-2 drinks per day Substance Use Type: does not use Exam Initial Vital Signs Initial Vital Signs: Vital Signs Temperature 98.0 F 08/14/21 21:01 Pulse Rate 89 08/14/21 21:01 Respiratory Rate 22 08/14/21 21:01 Blood Pressure 134/75 08/14/21 21:01 Pulse Oximetry 99 08/14/21 21:01 General: Alert appropriate in no acute distress Respiratory: Able to speak in full sentences, no obvious respiratory distress Skin: No obvious rashes, warm and dry Neurologic: Grossly intact no obvious asymmetries or abnormalities Psych: appropriate insight and affect, cooperative Extremity: Splint is removed and patient notices significant relief of pain simply with decreased pressure. She still has mild swelling and tenderness mid calf without erythema. Swelling and ecchymosis around the ankle is appreciated without significant skin breakdown or evidence of infection. She is neurovascularly intact distally. Procedures Orthopedic Splinting/Casting Left lower extremity: Side: left Lower Extremity Injury Location: ankle Lower Extremity Immobilizer: posterior splint Post splinting neuro exam: intact Post splinting vascular exam: intact Placed by: Nursing Course Orders Ordered: Discontinued Medications Ibuprofen (Ibuprofen 400 Mg Tablet) 400 mg PO NOW ONE Stop: 08/14/21 21:21 Last Admin: 08/14/21 22:13 Dose: 400 mg Documented by: [email or web address] Oxycodone/Acetaminophen (Oxycodone/Acetaminophen 5/325 Tablet) 2 tab PO NOW ONE Stop: 08/14/21 21:21 Last Admin: 08/14/21 22:13 Dose: 2 tab Documented by: [email or web address] Oxycodone/Acetaminophen (Oxycodone/Apap 5/325 Prepack) 1 bottle MISC SEEINSTR ONE Stop: 08/15/21 00:56 Last Admin: 08/15/21 01:03 Dose: 1 bottle Documented by: [email or web address] Vital Signs Vital signs: Vital Signs - 8 hr 08/14/21 21:01 Temperature 98.0 F Pulse Rate 89 Respiratory Rate 22 Blood Pressure 134/75 Pulse Oximetry 99 MDM - Extremity Injury (Lower) Imaging Data XR ankle: Radiologist's Impression: FINDINGS:? ? Bones:? There is a mildly displaced fracture of the lateral malleolus inferiorly.? There is also a curvilinear lucency through the base of the 5th metatarsal suspicious for a nondisplaced fracture.? Ankle mortise is normally aligned.? No suspicious bony lesions.? ? Soft tissues:? There is periarticular soft tissue swelling most prominent laterally.? No tibiotalar joint effusion.? Achilles tendon appears normal.? ? ? IMPRESSION:? ? 1. Mildly displaced fracture of the lateral malleolus inferiorly. ? 2. Nondisplaced fracture of the base of the 5th metatarsal.? Dictated by: Luther Calvillo M.D. on 08/14/2021 at 22:27? ?? US - DVT: Radiologist's Impression: TECHNIQUE:? Real-time imaging, as well as color and pulse Doppler interrogation, were performed of the lower extremity deep veins from the inguinal ligament to the popliteal fossa.? ? COMPARISON:? None. ? FINDINGS:? The common femoral, femoral and popliteal veins are normally compressible, and free of intraluminal thrombus.? Color and pulse Doppler demonstrate normal phasic intraluminal flow.? There is normal augmentation response to distal compression maneuver. ? ? IMPRESSION:? ? 1. No evidence of deep venous thrombosis in the left lower extremity.? ? ? Dictated by: Luther Calvillo M.D. on 08/14/2021 at 22:19 ? ? MDM Narrative Medical decision making narrative: 51-year-old woman who fell while in [place] 4 days ago and suffered a mildly displaced fracture of the lateral malleolus and a nondisplaced fracture of the base of the 5th metatarsal. She was placed in a posterior splint with sugar- tong instructed follow-up with Ortho. She does have an appointment scheduled for tomorrow. She comes in today with dramatically increased pain in the posterior calf with significant muscle spasm. She was given Flexeril on discharge from the emergency room in [place] but no instructions on pain medication. On arrival in the emergency room the splint is undone and simply releasing some pressure was helpful. Ultrasound of the calf reveals no evidence of DVT. She is placed in the simple posterior splint and is feeling much better at this time. She is given a Percocet prepack and feels this will likely be enough narcotic to get past the acute pain issues and is planning to follow-up with her orthopedist as scheduled tomorrow. At this point she is safe for home discharge Discharge Plan Departure Patient Disposition: Home Clinical Impression: Ankle fracture Instructions: DI for Ankle Fracture Activity Restrictions/Additional Instructions: Thank you for coming in today. I am sorry that you were hurting so much. We did replace her splint. There is no evidence of worsening fractures or blood clots in your legs to explain the worsening pain. It may simply been that the splint was too tight and causing pain. At this point you do need to keep your orthopedic follow-up tomorrow but you are safe to go home. Using 400 mg of ibuprofen (2 [id number] pills) and 1 Tylenol every 6 hours can be very helpful in controlling pain. For severe pain using 400 mg of ibuprofen and 1 Percocet can be helpful. Keeping the ankle elevated and icing it as tolerated will also help. I hope you heal quickly Prescriptions: No Action acyclovir 400 mg tablet 400 mg PO BID Qty: 60 11RF levonorgestrel-ethinyl estrad [Vienva] 0.1-20 mg-mcg tablet See Rx Instructions .ROUTE .COMPLEX Qty: 84 0RF Dose Instruction: TAKE 1 TABLET BY MOUTH EVERY EVENING Rx Instructions: TAKE 1 TABLET BY MOUTH EVERY EVENING mesalamine 4 gram/60 mL enema 60 ml ME BEDTIME 0RF Label Comments: INSERT 60 ML PER RECTUM QHS omeprazole 20 mg capsule,delayed release(DR/EC) 20 mg PO DAILY 0RF Label Comments: TK 1 C PO QD dextroamphetamine-amphetamine 15 mg capsule,extended release 24hr 15 mg PO DAILY 0RF Label Comments: take 1 capsule by mouth once daily mesalamine [Lialda] 1.2 gram tablet,delayed release (DR/EC) 2.4 g PO DAILY 0RF Referrals: Becki Alvarez PA-C [Primary Care Provider] -
[2021-08-15] MEDS: OXYCODONE/APAP 5/325 PREPACK 1 BOTTLE MISC (01:03)
[2021-08-15 01:30] VITALS: BP 139/78; PULSE 90; RESP 18; O2SAT 97
== END 2021-08-15 01:30 | disposition home or self-care (01) ==
PROVIDERS: Emergency Provider Emergency Medicine; PCP Physician Assistant
DX: S82.892A Other fracture of left lower leg, initial encounter for closed fracture (principal); W19.XXXA Unspecified fall, initial encounter
CPT/HCPCS: 73610; 93971; 99283

== ENCOUNTER → 2022-01-08 16:12 | Outpatient (CLI) | payer OTHER, SELFPAY | PROVIDERS: PCP Physician Assistant; Visit Provider Nurse Practitioner Family | DX: R30.0 Dysuria (principal) | CPT/HCPCS: 87086 ==

== ENCOUNTER 2023-05-07 00:54 | Observation (INO) | payer OTHER, SELFPAY ==
[2023-05-07] VITALS (18 sets, daily range): BP systolic 90–144; BP diastolic 54–83; PULSE 74–119; RESP 12–22; TEMP 35.9–38.7; O2SAT 90–97; BMI 29.0
--- NOTE | 2023-05-07 | PATH_ITS ---
[facility] Accession Number: [id number] No. of containers..01 Tissue . 01 Material submitted: . appendix - APPENDIX . 01 Diagnosis: APPENDIX, APPENDECTOMY: Acute appendicitis with serositis. No evidence of neoplasm. WILNER 05/09/2023 1109 Local . 01 Electronically signed: . Hema Monae MD, PhD, Pathologist NPI- [id number] . 01 Gross description: . The specimen is received in formalin labeled with the patient's name, , and appendix, consists of a single intact vermiform appendix measuring 9.0 cm in length and up to 1.4 cm in greatest diameter. The mesoappendix measures 7.9 x 2.4 x 2.3 cm. The serosal surface is rivers-hurtado with diffuse areas of red stippling and adherent hurtado fibrinous exudate. The margin is stapled and is inked blue. The tissue is serially sectioned to reveal a rivers-brown fecalith measuring 1.3 x 0.7 x 0.7 cm. The mucosal surface is rivers-hurtado and congested. No lesions are seen. Bar Tacker sections to include the appendiceal orifice margin, one-half of the distal tip, and cross sections of appendix are submitted in cassettes A1-A2. ([id number]) /MRV 05/08/2023 1250 Local . 01 Pathologist provided ICD-10: K35.80 . 01 CPT . 638914 Specimen Comment: A courtesy copy of this report has been sent to [phone] Performed at: 01 [facility] [address] [place] [address] [address] [facility], [place], [place] [id number] MD Luther Carter MD Phone: [phone]
[2023-05-07] MEDS: ONDANSETRON 4 MG/2 ML INJ IV ×2 (01:09→07:51)
[2023-05-07 01:23] LABS: Add Manual Diff / Slide Review NO; Basophils Absolute Auto 0 /uL (0-100); Basophils Percent Auto 0.2 % (0-2); Eosinophils Absolute Auto 100 /uL (0-450); Hematocrit 36.6 % (36-46); Hemoglobin 12.7 g/dL (12.0-16.0); Lymphocytes Absolute Auto 1700 /uL (1100-4500); Lymphocytes Percent Auto 14.2 % (25-40); Mean Corpuscular HGB Conc 34.7 % (30-36); Mean Corpuscular Hemoglobin 30.9 PG (26-34); Mean Corpuscular Volume 88.9 fL (80-100); Monocytes Absolute Auto 700 /uL (0-900); Monocytes Percent Auto 5.6 % (3-14); Neutrophils Absolute Auto 9200 /uL (1500-7000); Platelet Count 274 X10^3/uL (150-400); Red Blood Cell Count 4.11 X10^6/uL (4.0-5.2); Red Cell Distribution Width 12.9 % (11.6-14.8); White Blood Cell Count 11.7 X10^3/uL (4.5-11.0)
[2023-05-07 01:26] LABS: Alanine Aminotransferase 21 IU/L (<35); Albumin 4.4 g/dL (3.5-5.0); Albumin Globulin Ratio 1.1 (1.0-2.8); Alkaline Phosphatase 197 U/L (38-126); Aspartate Aminotransferase 26 IU/L (14-36); BUN Creatinine Ratio 20.3 (6-22); Bilirubin Total 0.6 mg/dL (0.2-1.3); Blood Urea Nitrogen 12 mg/dL (7-17); Calcium 9.5 mg/dL (8.4-10.2); Carbon Dioxide 25 mmol/L (22-32); Chloride 103 mmol/L (98-107); Estimated Glomerular Filt Rate > 60 mL/min (>60); Glucose 123 mg/dL (70-100); HEMOLYSIS < 15 (0-50); Lipase 19 U/L (23-300); Potassium 3.6 mmol/L (3.4-5.1); Sodium 139 mmol/L (137-145); Total Protein 8.4 g/dL (6.3-8.2)
--- NOTE | 2023-05-07 01:29 | DI.CT.S_ITS ---
PROCEDURE: CT ABDOMEN PELVIS W CON INDICATIONS: generalized abdominal pain TECHNIQUE: After the administration of intravenous contrast, axial sections acquired from the lung bases to the pubic symphysis. Coronal and sagittal reformats were performed. For radiation dose reduction, the following was used: automated exposure control, adjustment of mA and/or kV according to patient size. COMPARISON: None. FINDINGS: Image quality: Diagnostic. Lower Chest: Minimal bibasilar atelectasis. Small hiatal hernia. Heart size is normal. ABDOMEN: Liver: No solid mass. Gallbladder: No radiopaque gallstones or wall thickening. Biliary ducts: No biliary dilation. Pancreas: No ductal dilation. Spleen: Size is within normal limits. Adrenal Glands: No adrenal nodules. Kidneys and Ureters: No hydronephrosis. No solid mass. No complex renal cystic lesion which requires follow up. Nonobstructing 7 mm left renal stone. Bilateral ureters are normal in course and caliber. Stomach and Bowel: Normal colonic caliber, without significant wall thickening. The appendix is inflamed and dilated measuring up to 1.6 cm in diameter. Moderate periappendiceal stranding. No evidence for perforation or abscess formation. Peritoneum: No abnormal intraperitoneal fluid. No free air. Ventral Wall: There is a fat-containing umbilical hernia without acute inflammation. Abdominal Nodes: No retroperitoneal or mesenteric adenopathy by size criteria. Vessels: Aorta and inferior vena cava are normal in size. PELVIS: Pelvic Organs: Unremarkable. Bladder: No bladder wall thickening, accounting for underdistention. Pelvic Nodes: No enlarged lymph nodes. Miscellaneous: No inguinal hernias are seen. Bones: No aggressive osseous abnormality. Macro bone IMPRESSION: 1. Acute appendicitis. No evidence for perforation or abscess formation. 2. Small hiatal hernia. 3. A 7 mm nonobstructing left renal stone. No hydronephrosis. Dictated by: De Stanton M.D. on 05/07/2023 at 1:55 Approved by: De Stanton M.D. on 05/07/2023 at 2:03
--- NOTE | 2023-05-07 01:30 | ED_ITS ---
HPI - Abdominal Pain General Chief Complaint: Abdominal Pain Stated Complaint: ABD PAIN Time Seen by Provider: 05/07/23 01:15 Source: patient Mode of arrival: Ambulatory History of Present Illness HPI narrative: This is a 53-year-old female with a history of ulcerative colitis presenting with generalized abdominal pain. Pain has been present for about 5 hours. Was not sudden in onset, had 1 episode of nausea and vomiting, has not had any diarrhea has had some constipation says her last bowel movement was about 3 days ago. She has had no previous abdominal surgery. Recently started Ozempic, has been taking it for about 3 weeks. She typically takes mesalamine for her ulcerative colitis but has been off that for 4 days, she has been on omeprazole for reflux but also stopped that. No urinary symptoms. Has not had similar symptoms in the past. Related Data Home Medications Medication Instructions Recorded Confirmed dextroamphetamine-amphetamine ER 15 mg PO DAILY PRN ADHD 05/22/18 05/07/23 15 mg 24hr capsule,extend release mesalamine 1.2 gram tablet,delayed 2.4 g PO DAILY 05/22/18 05/07/23 release mesalamine 4 gram/60 mL enema 60 ml IN BEDTIME 05/22/18 05/07/23 omeprazole 20 mg capsule,delayed 20 mg PO DAILY 05/22/18 05/07/23 release acyclovir 400 mg tablet 400 mg PO BID PRN HSV 05/07/23 05/07/23 Previous Rx's Medication Instructions Recorded levonorgestrel-ethinyl estradiol See Rx Instructions .Route 09/04/21 0.1 mg-20 mcg tablet (Vienva) .COMPLEX #84 tabs Allergies Allergy/AdvReac Type Severity Reaction Status Date / Time No Known Drug Allergies Allergy Verified 01/08/22 16:09 Patient History Medical History Ulcerative colitis Vaginal delivery Surgical History History of breast augmentation Social History household members: spouse and children Smoking Status: Never smoker alcohol intake: current Smoking Status: Never smoker alcohol intake frequency: 0-2 drinks per day Substance Use Type: does not use Exam Initial Vital Signs Initial Vital Signs: Vital Signs Temperature 98.6 F 05/07/23 01:00 Pulse Rate 102 H 05/07/23 01:00 Respiratory Rate 18 05/07/23 01:00 Blood Pressure 144/83 H 05/07/23 01:00 Pulse Oximetry 97 05/07/23 01:00 Oxygen Delivery Method Room Air 05/07/23 01:00 Const General: healthy appearing and No acute distress HENMT Head: normocephalic and atraumatic Resp Effort & Inspection: normal respiratory effort Auscultation: clear to auscultation bilaterally Cardio Other: Regular rhythm and rate no murmur rub or gallop GI Other: Normal bowel sounds abdomen is soft right lower quadrant is tender without guarding or rebound Skin Other: Skin is warm and dry no jaundice Neuro Other: Alert oriented and cooperative Psych Appearance: grossly normal Mental Status: mental status grossly normal Course Orders Ordered: ED Orders 05/07/23 01:05 Complete Blood Count AUTO DIFF Stat Comprehensive Metabolic Panel Stat Lipase Stat 05/07/23 01:29 CT abdomen pelvis w con Stat 05/07/23 01:31 Urine Culture Stat Urine Microscopic Stat Celecoxib (Celecoxib 100 Mg Capsule) 200 mg PO BID [facility] Last Admin: 05/07/23 04:13 Dose: Not Given Documented By: Gabapentin (Gabapentin 300 Mg Capsule) 300 mg PO TID [facility] Last Admin: 05/07/23 04:13 Dose: Not Given Documented By: Hydromorphone HCl (Hydromorphone 0.5 Mg Inj) 0.5 mg IV Q2H PRN PRN Reason: Pain, Moderate (4-6) Lactated Ringer's (Lactated Ringers) 1,000 mls @ 150 mls/hr IV CONT [facility] Last Admin: 05/07/23 02:25 Dose: 150 mls/hr Documented By: DOMENIC Lactated Ringer's (Lactated Ringers) 1,000 mls @ 21 mls/hr IV CONT [facility] Ceftriaxone Sodium 1,000 mg/ (Sodium Chloride) 100 mls @ 200 mls/hr IV Q24H [facility] Ketorolac Tromethamine (Ketorolac 30 Mg/Ml Vial) 15 mg IV Q6H [facility] Stop: 05/12/23 03:53 Last Admin: 05/07/23 04:11 Dose: 15 mg Documented By: Metoclopramide HCl (Metoclopramide 10 Mg/2 Ml Inj) 10 mg IV Q6HR PRN PRN Reason: Nausea And Vomiting Last Admin: 05/07/23 04:08 Dose: 10 mg Documented By: Ondansetron HCl (Ondansetron 4 Mg Odt) 4 mg PO NOW PRN PRN Reason: Nausea And Vomiting Ondansetron HCl (Ondansetron 4 Mg/2 Ml Inj) 4 mg IV NOW PRN PRN Reason: Nausea And Vomiting Last Admin: 05/07/23 01:09 Dose: 4 mg Documented By: DOMENIC Ondansetron HCl (Ondansetron 4 Mg/2 Ml Inj) 4 mg IV Q6HR PRN PRN Reason: Nausea And Vomiting Discontinued Medications Hydromorphone HCl (Hydromorphone 0.5 Mg Inj) 0.5 mg IV NOW ONE Stop: 05/07/23 01:30 Last Admin: 05/07/23 01:34 Dose: 0.5 mg Documented By: DOMENIC Ceftriaxone Sodium 2,000 mg/ (Sodium Chloride) 100 mls @ 200 mls/hr IV NOW ONE Stop: 05/07/23 02:21 Last Infusion: 05/07/23 02:46 Dose: Infused Documented By: Admin: 05/07/23 02:25 Dose: 200 mls/hr Documented By: DOMENIC Metronidazole (Flagyl) 500 mg in 100 mls @ 100 mls/hr IV NOW ONE Stop: 05/07/23 03:19 Last Infusion: 05/07/23 03:26 Dose: Infused Documented By: Admin: 05/07/23 02:26 Dose: 100 mls/hr Documented By: DOMENIC Scopolamine (Scopolamine 1 Patch) 1 patch TOP NOW ONE Stop: 05/07/23 02:37 Last Admin: 05/07/23 03:26 Dose: 1 patch Documented By: Reevaluation(s) Reevaluation #1: At 2:20 a.m., I discussed the case with General surgery on-call Dr. Aguilera, she will see the patient later this morning, we will hold the patient NPO I will start ceftriaxone and Flagyl. Vital Signs Vital signs: Vital Signs - 8 hr 05/07/23 01:00 05/07/23 01:00 05/07/23 01:01 Temperature 98.6 F Pulse Rate 102 H 104 H Respiratory Rate 18 Blood Pressure 144/83 H 144/83 H Pulse Oximetry 97 97 Oxygen Delivery Method Room Air Room Air 05/07/23 01:01 05/07/23 01:30 05/07/23 01:30 Temperature Pulse Rate 104 H 97 H Respiratory Rate 20 Blood Pressure 130/78 Pulse Oximetry 97 96 Oxygen Delivery Method Room Air Room Air 05/07/23 02:22 05/07/23 02:22 05/07/23 02:30 Temperature 98.1 F Pulse Rate 84 80 Respiratory Rate 20 Blood Pressure 120/70 Pulse Oximetry 95 94 Oxygen Delivery Method Room Air Room Air 05/07/23 02:30 Temperature Pulse Rate Respiratory Rate Blood Pressure 114/69 Pulse Oximetry Oxygen Delivery Method MDM - Abdominal Pain Lab Data Lab results narrative: CBC shows a mild white count of 11.7 CMP is unremarkable can only urine dip is unremarkable 05/07/23 01:05 05/07/23 01:05 Labs: Lab Results 05/07/23 05/07/23 Range/Units 01:05 01:31 WBC 11.7 H (4.5-11.0) X10^3/uL RBC 4.11 (4.0-5.2) X10^6/uL Hgb 12.7 (12.0-16.0) g/dL Hct 36.6 (36-46) % MCV 88.9 (80-100) fL MCH 30.9 (26-34) PG MCHC 34.7 (30-36) % RDW 12.9 (11.6-14.8) % Plt Count 274 (150-400) X10^3/uL Neut % (Auto) 79.0 H (50-75) % Lymph % (Auto) 14.2 L (25-40) % Bullock % (Auto) 5.6 (3-14) % Eos % (Auto) 1.0 L (2-4) % Baso % (Auto) 0.2 (0-2) % Neut # (Auto) 9200 H (4384-4361) /uL Lymph # (Auto) 1700 (2849-7336) /uL Bullock # (Auto) 700 (0-900) /uL Eos # (Auto) 100 (0-450) /uL Baso # (Auto) 0 (0-100) /uL Sodium 139 (137-145) mmol/L Potassium 3.6 (3.4-5.1) mmol/L Chloride 103 (98-107) mmol/L Carbon Dioxide 25 (22-32) mmol/L BUN 12 (7-17) mg/dL Creatinine 0.59 (0.52-1.04) mg/dL Estimated GFR > 60 (>60) mL/min BUN/Creatinine Ratio 20.3 (6-22) Glucose 123 H (70-100) mg/dL Calcium 9.5 (8.4-10.2) mg/dL Total Bilirubin 0.6 (0.2-1.3) mg/dL AST 26 (14-36) IU/L ALT 21 (<35) IU/L Alkaline Phosphatase 197 H (38-126) U/L Total Protein 8.4 H (6.3-8.2) g/dL Albumin 4.4 (3.5-5.0) g/dL Globulin 4.0 (1.7-4.1) g/dL Albumin/Globulin Ratio 1.1 (1.0-2.8) Lipase 19 L (23-300) U/L Urine RBC 1-5/hpf (0-5/HPF) Urine WBC None seen (0-5/HPF) Ur Squamous Epith Cells None seen (0-5/HPF) Urine Bacteria None seen (None) Urine Mucus 1+ H (Negative) Vol Urine Centrifuged 10ml (spun) Point of care testing: Point of Care Testing Test Results Negative Urine Dip Bedside Urine Glucose Negative Bedside Urine Bilirubin - Negative Bedside Urine Ketone - Negative Urine Specific [place] 1.025 Bedside Urine Occult Blood + Bedside Urine pH 6.0 Bedside Urine Protein - Negative Bedside Urine Urobilinogen - Negative Bedside Urine Nitrite - Negative Bedside Urine Leukocytes - Negative Esterase MDM Narrative Medical decision making narrative: 53-year-old female presenting with abdominal pain initial complaints of diffuse pain, noted to have focal right lower quadrant tenderness. CT shows acute appendicitis she has a mild leukocytosis she appears stable otherwise. Patient will be admitted to the hospital overnight and surgery will see her later this morning. She has been started on ceftriaxone and Flagyl. Discharge Plan Departure Patient Disposition: Admitted to Surgery Clinical Impression: Acute appendicitis Qualifiers: Acute appendicitis type: with localized peritonitis Appendicitis gangrene presence: without gangrene Appendicitis perforation presence: without perforation Appendicitis abscess presence: without abscess Qualified Code(s): K 35.30 - Acute appendicitis with localized peritonitis, without perforation or gangrene Admit Date/Time: 05/07/23 02:31 Admit Provider: Flower Aguilera
[2023-05-07] MEDS: HYDROMORPHONE 0.5 MG INJ IV ×2 (01:34→07:50)
[2023-05-07 02:06] LABS: Bacteria Urine None Seen; Mucus Urine 1+ (Negative); RBC Urine 1-5/HPF (0-5/HPF); Squamous Epithelial Cell Urine None Seen (0-5/HPF); Urine Volume 10mL (spun); WBC Urine None Seen (0-5/HPF)
[2023-05-07] MEDS: cefTRIAXone 2,000 MG in SODIUM CHLORIDE 0.9% 100 ML 200 MG IV (02:25)
[2023-05-07] MEDS: LACTATED RINGERS 1,000 ML 150 ML IV ×3 (02:25→14:58)
[2023-05-07] MEDS: metroNIDAZOLE 500 MG/100 ML PIGGYBACK 100 MG IV (02:26)
[2023-05-07] MEDS: SCOPOLAMINE 1 PATCH TOP (03:26)
[2023-05-07] MEDS: METOCLOPRAMIDE 10 MG/2 ML INJ IV ×2 (04:08→10:12)
[2023-05-07] MEDS: KETOROLAC 30 MG/ML VIAL 15 MG IV ×3 (04:11→21:30)
[2023-05-07] MEDS: CELECOXIB 100 MG CAPSULE 200 MG PO ×2 (08:06→21:31)
[2023-05-07] MEDS: GABAPENTIN 300 MG CAPSULE PO ×2 (08:06→21:30)
--- NOTE | 2023-05-07 09:17 | PM.HP.1 ---
History of Present Illness History of Present Illness Date Patient Seen: 05/07/23 Time Patient Seen: 09:18 Chief complaint: ABD PAIN Narrative: Michelle Santos is a 53 year old woman who presented to the ER overnight complaining of periumbilical abdominal pain. A CT scan was performed which showed acute, uncomplicated appendicitis. She has also had nausea and vomiting. [facility] Medical History Ulcerative colitis Vaginal delivery Surgical History History of breast augmentation Social History household members: spouse and children Smoking Status: Never smoker alcohol intake: current Meds Home Medications and Allergies Home Medications Medication Instructions Recorded Confirmed Type dextroamphetamine-amphetamine ER 15 mg PO DAILY PRN ADHD 05/22/18 05/07/23 History 15 mg 24hr capsule,extend release mesalamine 1.2 gram tablet,delayed 2.4 g PO DAILY 05/22/18 05/07/23 History release mesalamine 4 gram/60 mL enema 60 ml ID BEDTIME 05/22/18 05/07/23 History omeprazole 20 mg capsule,delayed 20 mg PO DAILY 05/22/18 05/07/23 History release levonorgestrel-ethinyl estradiol See Rx Instructions .Route 09/04/21 05/07/23 Rx 0.1 mg-20 mcg tablet (Vienva) .COMPLEX #84 tabs acyclovir 400 mg tablet 400 mg PO BID PRN HSV 05/07/23 05/07/23 History semaglutide (weight loss) 0.5 0.5 mg SUBCUT QWEEK 05/07/23 05/07/23 History mg/0.5 mL subcutaneous pen injector Allergies Allergy/AdvReac Type Severity Reaction Status Date / Time No Known Drug Allergies Allergy Verified 01/08/22 16:09 Exam Vital Signs (past 8 hours): - 05/07/23 01:30 05/07/23 01:30 05/07/23 02:22 Temperature Pulse Rate 97 H Respiratory Rate 20 Blood Pressure 130/78 120/70 Pulse Oximetry 96 Oxygen Delivery Method Room Air 05/07/23 02:22 05/07/23 02:30 05/07/23 02:30 Temperature 98.1 F Pulse Rate 84 80 Respiratory Rate 20 Blood Pressure 114/69 Pulse Oximetry 95 94 Oxygen Delivery Method Room Air Room Air 05/07/23 03:00 Temperature 97.6 F Pulse Rate 80 Respiratory Rate 18 Blood Pressure 118/74 Pulse Oximetry 93 Oxygen Delivery Method Oxygen Delivery Method Room Air Narrative Exam Narrative: Involuntary guarding at [facility]'s point Objective Labs 05/07/23 01:05 05/07/23 01:05 Labs: Laboratory Results - last 24 hr 05/07/23 05/07/23 01:05 01:31 WBC 11.7 H RBC 4.11 Hgb 12.7 Hct 36.6 MCV 88.9 MCH 30.9 MCHC 34.7 RDW 12.9 Plt Count 274 Neut % (Auto) 79.0 H Lymph % (Auto) 14.2 L Major % (Auto) 5.6 Eos % (Auto) 1.0 L Baso % (Auto) 0.2 Neut # (Auto) 9200 H Lymph # (Auto) 1700 Major # (Auto) 700 Eos # (Auto) 100 Baso # (Auto) 0 Sodium 139 Potassium 3.6 Chloride 103 Carbon Dioxide 25 BUN 12 Creatinine 0.59 Estimated GFR > 60 BUN/Creatinine Ratio 20.3 Glucose 123 H Calcium 9.5 Total Bilirubin 0.6 AST 26 ALT 21 Alkaline Phosphatase 197 H Total Protein 8.4 H Albumin 4.4 Globulin 4.0 Albumin/Globulin Ratio 1.1 Lipase 19 L Urine RBC 1-5/hpf Urine WBC None seen Ur Squamous Epith Cells None seen Urine Bacteria None seen Urine Mucus 1+ H Vol Urine Centrifuged 10ml (spun) Assessment & Plan Assessment and plan (1) Acute appendicitis: Qualifiers: Acute appendicitis type: with localized peritonitis Appendicitis abscess presence: without abscess Appendicitis gangrene presence: without gangrene Appendicitis perforation presence: without perforation Qualified Code(s): K35.30 - Acute appendicitis with localized peritonitis, without perforation or gangrene Status: Acute Plan I explained to Michelle that she has acute appendicitis. I described the therapeutic options which include laparoscopic appendectomy versus IV antibiotics. She has not decided what she wants to do yet but she will notify her nurse if she decides she wants to have surgery later today.
--- NOTE | 2023-05-07 13:48 | CM.DANOTE ---
Patient is a 53 yo female who was admitted on 05/07/23 for Abd Pain. Pt has [facility] for insurance and her PCP is Becki Harrison. EMR was reviewed. Per Surgeon, pt with hx of ulcerative colitis and no hx of abd surgery and admitted for Acute Appendicitis. Discussed bedside IV-Abx vs surgery and pt currently wants to try conservative tx of IV-Abx before surgical intervention. SW met bedside briefly with pt and explained role and pt clearly in significant discomfort and eyes closed with grimaces. Pt confirms she lives in [facility] with her spouse and family and confirms she has assist and support after discharge and currently unable to participate in further discussion due to her pain. Plan: SW to follow closely for conservative tx with IV-Abx vs possible surgical intervention and any further identified discharge planning needs. ALEXUS Calvin Discharge Planning/Care Management CM Discharge Assessment Start: 05/07/23 13:45 Freq: Status: Active Protocol: Document 05/07/23 13:45 BF (Rec: 05/07/23 13:48 BF [id number]) Discharge Planning Assessment Assigned Rug Cutter ALEXUS Christianson DPOA/Assigned Designee Name Reginald Leach Contact Information [phone] Advance Directives? No Advance Directives on File No History Provided By Patient,Medical Record Has Patient been admitted in last 30 No days? Prior Living Arrangements House Household Members spouse,children Type of transporation used prior to Drives own vehicle admit Independent with ADL's Yes Is patient alert and oriented? Yes Caregiver for Another No Barriers to Discharge No Discharge Plan Home Transportation Arrangement Family Referrals Initiated None needed Additional Comment Pending possible surgery vs conservative tx Whiteboard Updated in Patient Room with Yes name and ext. # of Rug Cutter Review Status In Process Please Provide Date Initial DC 05/07/23 Assessment Was Performed Next Review Type Continued Stay Review
--- NOTE | 2023-05-07 14:39 | PM.PREOP ---
Pre-operative Note Interval Note History & Physical reviewed/Exam performed by Physician: Yes Changes to H&P: No H&P completed within 30 days and has changed as indicated here:: 53-year-old woman with symptoms and radiographic findings consistent with appendicitis. Overview of operation discussed. Operative risks including but not limited to hemorrhage, infection, damage to surrounding structures, conversion open discussed. Questions have been answered she is in agreement with this plan. She provides her written and verbal consent to proceed.
[2023-05-07] MEDS: PIPERACILLIN/TAZO 3.375 GM in SODIUM CHLORIDE 0.9% 100 ML IV (16:05)
--- NOTE | 2023-05-07 16:10 | SUR.OPER ---
Supine on padded OR bed, head on pillow, right arm secured on padded arm board at <90 degrees abduction, left arm padded and tucked at side. legs uncrossed, safety belt at thigh, tape over blanket over lower legs.
[2023-05-07] MEDS: BUPIVACAINE 0.25% (PF) VIAL 30 ML INJ (16:20)
--- NOTE | 2023-05-07 16:44 | PM.OP.1 ---
Operative Date/Time/Diagnoses Date of procedure: 05/07/23 Time of procedure: 16:44 Pre-op diagnosis: acute appendicitis Post-op diagnosis: same Procedure & Clinicians Procedure: Laparoscopic appendectomy Same procedure as scheduled: Yes Indications: Symptoms and radiographic findings consistent with acute appendicitis Surgeon: Kendall Chavez Anesthesia Type: General Operative Notes Findings: Acute non perforated appendicitis. Small amount of purulent fluid within the pelvis. Specimen(s): other (Appendix) Estimated Blood Loss (mL): 20 Procedure in detail: Patient was brought to the operating room placed supine on the table. Bilateral lower extremity compression devices were applied. Anesthesia was induced and they intubated with an endotracheal tube. They received 3.375 g of Zosyn prior to skin incision. The left arm was tucked and appropriately padded. They were prepped and draped in sterile fashion. Time-out was performed. An infraumbilical incision was made the umbilical stalk was grasped and elevated and incision was made and the abdomen was entered atraumatically. A 12 mm balloon trocar was then placed through the incision and pneumoperitoneum of 14 mm Hg was established. The scope was then inserted and the abdomen inspected, there was no evidence of injury upon entry. Two 5 mm ports were placed under direct visualization, one in the left lower quadrant and second in the lower midline. A thorough laparoscopic evaluation was performed inspecting all four quadrants. The patient was then tilted right side up. The small bowel was then swept to the upper aspect of the abdomen. The tenie were followed to the base of the cecum where the appendix was identified. The appendix was was mobilized from its lateral attachments. It was acutely inflamed but not perforated. The appendix was grasped and a window within the mesentery was made at the base of the appendix using the [place] dissector with care to avoid injuring the cecum. The mesoappendix was then divided using the endo-stapler with a staple length of 2.5 mm-white load. The mesenteric staple line was inspected for hemostasis. The appendix was then amputated flush at the cecum using the endo-stapler blue load. The specimen was retrieved using a endoscopic retrieval bag through the 10 mm infra-umbilical port. The right paracolic gutter and the pouch of Bony were irrigated The 5 mm ports were then removed under direct visualization. The umbilical fascial incision was closed with 0 Vicryl in a figure-eight fashion. The skin wounds were irrigated and closed with 4-0 Monocryl followed by the application of Dermabond. Sponge instrument count at the end of the operation was correct. The patient tolerated procedure well was extubated and transferred to the postoperative care unit in stable condition. Complications: none Post-operative Condition: stable Disposition: Acute Care
--- NOTE | 2023-05-07 16:45 | PM.CALLCOV.1 ---
Call Coverage Note Note Date of Patient Contact: 05/07/23 Time of Patient Contact: 16:45 Narrative of Care Provided: acute non perforated appendicitis. may discharge home tonrosi 05/07
[2023-05-07] MEDS: OXYCODONE IR 5 MG TABLET PO ×2 (18:30→22:34)
[2023-05-08] VITALS: BP 124/63; PULSE 76; RESP 17; TEMP 36.4; O2SAT 96
[2023-05-08 04:00] VITALS: BP 110/65; PULSE 60; RESP 17; TEMP 35.9; O2SAT 98
[2023-05-08] MEDS: KETOROLAC 30 MG/ML VIAL 15 MG IV (04:40)
[2023-05-08] MEDS: OXYCODONE IR 5 MG TABLET PO (04:40)
[2023-05-08 07:49] VITALS: BP 98/61; PULSE 68; RESP 18; TEMP 36.7; O2SAT 96
[2023-05-08] MEDS: CELECOXIB 100 MG CAPSULE 200 MG PO (08:17)
[2023-05-08] MEDS: GABAPENTIN 300 MG CAPSULE PO (08:17)
[2023-05-08] MEDS: DOCUSATE 100 MG CAPSULE PO (09:44)
[2023-05-08] MEDS: polyethylene glycoL 3350 17 GM POWD.PACK PO (09:44)
--- NOTE | 2023-05-08 10:15 | PC.NURSE ---
Day shift: Paperwork signed and all questions answered. Pt has new MD scripts. Left unit via WC at approx 1015. Son is driving her home. Taken to that car by PCT Sandra. Lap sites remain w/o s/s of infection and intact. Pt has all personal belongings.
== END 2023-05-08 10:17 | disposition home or self-care (01) ==
LOC: ED 02:22 → AC 02:32
PROVIDERS: Surgery; Admitting Provider Surgery; Emergency Provider Emergency Medicine; PCP Physician Assistant; Referring Provider Emergency Medicine; Visit Provider Surgery
PROC: 0DTJ4ZZ Resection of Appendix, Percutaneous Endoscopic Approach (ICD-10-PCS; CPT 44970; principal; 2023-05-07 17:15)
DX: K35.30 Acute appendicitis with localized peritonitis, without perforation or gangrene (principal)
CPT/HCPCS: 44970; 36415; 74177; 80053; 81003; 81015; 81025; 82962; 83690; 85025; 87086; 96361; 96365; 96368; 96375; 96376; 99284; G0378; J0330; J0696; J1100; J1170; J1885; J2405; J2543; J2704; J2765; J3010; J3490; Q9967

== ENCOUNTER → 2023-08-05 10:00 | Outpatient (CLI) | payer OTHER, SELFPAY ==
[2023-05-07 04:00] VITALS: BMI 29.0
--- NOTE | 2023-08-05 10:02 | DI.US.S_ITS ---
PROCEDURE: US ABDOMEN LIMITED INDICATIONS: Abnormal results of liver function studies TECHNIQUE: Real-time scanning was performed of the abdominal and retroperitoneal organs, with image documentation. COMPARISON: None. FINDINGS: Liver: Increased liver echogenicity. No solid mass. Gallbladder: No gallstones. No wall thickening. No pericholecystic edema. Negative sonographic Sevilla's sign. Biliary ducts: Intrahepatic bile ducts are non-dilated. Extrahepatic bile duct caliber measures 3 mm. Normal is 6-7 mm or less in diameter, or 10 mm or less post-cholecystectomy. Pancreas: Visualized portions of the pancreas are sonographically normal. Miscellaneous: No free abdominal fluid. IMPRESSION: Increased liver echogenicity, commonly caused by mild hepatic steatosis. Dictated by: Arsalan Tello M.D. on 08/05/2023 at 13:29 Approved by: Arsalan Tello M.D. on 08/05/2023 at 13:30
[2023-08-05 11:39] LABS: Alanine Aminotransferase 19 IU/L (<35); Albumin 4.6 g/dL (3.5-5.0); Albumin Globulin Ratio 1.2 (1.0-2.8); Alkaline Phosphatase 183 U/L (38-126); Aspartate Aminotransferase 30 IU/L (14-36); Bilirubin Total 0.6 mg/dL (0.2-1.3); Bilirubin Unconjugated 0.2 mg/dL (0.0-1.1); Gamma Glutamyl Transpeptidase 16 U/L (12-43); Globulin 3.9 g/dL (1.7-4.1); HEMOLYSIS < 15 (0-50); Total Protein 8.5 g/dL (6.3-8.2)
== END ==
PROVIDERS: PCP Physician Assistant; Referring Provider Specialist; Visit Provider Specialist
DX: K51.90 Ulcerative colitis, unspecified, without complications (principal); R53.83 Other fatigue; R25.3 Fasciculation; M62.81 Muscle weakness (generalized); M54.2 Cervicalgia; R11.0 Nausea; D89.9 Disorder involving the immune mechanism, unspecified; R94.5 Abnormal results of liver function studies; N95.9 Unspecified menopausal and perimenopausal disorder; R29.90 Unspecified symptoms and signs involving the nervous system
CPT/HCPCS: 36415; 76705; 80076; 82977; 84080

== ENCOUNTER → 2023-11-11 14:16 | Outpatient (CLI) | payer OTHER, SELFPAY ==
[2023-05-07 04:00] VITALS: BMI 29.0
== END ==
PROVIDERS: PCP Physician Assistant; Visit Provider Student in an Organized Health Care Education/Training Program
DX: R30.0 Dysuria (principal)
CPT/HCPCS: 87077; 87086

== ENCOUNTER → 2024-02-20 13:17 | Outpatient (CLI) | payer OTHER, SELFPAY ==
[2023-05-07 04:00] VITALS: BMI 29.0
--- NOTE | 2024-02-20 13:18 | DI.MRI.S_ITS ---
PROCEDURE: MR CERVICAL SPINE WO CON INDICATIONS: cervicalgia TECHNIQUE: Noncontrast sagittal T1 spin echo and T2 fast spin echo, sagittal STIR, foraminal oblique sagittal T2 fast spin echo, and axial gradient echo or T2 fast spin echo through the cervical spine. COMPARISON: [facility], MR, MR CERVICAL SPINE WO CON, 06/10/2019, 15:20. [facility], MR, MR CERVICAL SPINE WO/W CON, 05/17/2020, 12:42. FINDINGS: Image quality: Excellent. Alignment and Curvature: Reversal of the normal cervical lordosis is seen, with the apex at the C5-C6 level. Minimal anterolisthesis is seen at the C3-C4 level. There is minimal retrolisthesis seen at C5-C6 and C6-C7. Bone Marrow: Marrow demonstrates normal overall signal. Spinal Cord: Visualized spinal cord has normal size and signal. No cerebellar tonsillar herniation. Paraspinous Soft Tissues: No paravertebral masses. Prevertebral soft tissues are normal in thickness. C2-C3: The disc height is well-preserved. Loss of disc signal is seen at this level. A mild degree of generalized disc osteophyte complex is seen. Moderate facet joint hypertrophy is seen. No neural foraminal narrowing or central canal narrowing can be seen. These imaging findings have progressed compared to the prior study. C3-C4: Mild loss of disc height is seen. Loss of disc signal is seen. A mild degree of generalized disc osteophyte complex is seen. There is moderate facet hypertrophy seen, right worse than left. There is at least moderate right-sided and moderate left-sided neural foraminal narrowing. No significant central canal narrowing is seen. These imaging findings have progressed compared to the prior study. C4-C5: Mild loss of disc height is seen. Loss of disc signal is seen. Mild to moderate disc osteophyte complex is seen, which is eccentric to the left. There is a left subarticular/foraminal disc osteophyte protrusion, as on series 4, image 23. There is moderate right-sided and at least moderate left-sided facet hypertrophy. There is moderate to severe left-sided and no right-sided neural foraminal narrowing. Mild central canal narrowing is seen. These imaging findings have progressed compared to the prior study. C5-C6: There is at least moderate loss of disc height and disc signal. Moderate disc osteophyte complex is seen, which is eccentric to the left. Uncovertebral joint hypertrophy is seen at this level. Moderate facet joint hypertrophy is seen. There is moderate right-sided and mild left-sided neural foraminal narrowing. No central canal narrowing is seen. C6-C7: Moderate loss of disc height is seen. Loss of disc signal is seen. Moderate generalized disc osteophyte complex is seen. Moderate facet joint hypertrophy is seen. There is at least moderate left-sided and moderate right-sided neural foraminal narrowing. Mild central canal narrowing is seen. These imaging findings have progressed compared to the prior study. C7-T1: The disc height and disk signal are well-preserved. A mild degree of generalized disc osteophyte complex is seen. Mild facet joint hypertrophy is seen. Mild bilateral neural foraminal narrowing is seen. No central canal narrowing is seen. When comparison is made with the prior images, these findings are similar. IMPRESSION: Multiple levels of cervical spine degenerative change can be seen, which have progressed at several levels compared to 2020. Dictated by: Naren Roque M.D. on 02/20/2024 at 17:57 Approved by: Naren Roque M.D. on 02/20/2024 at 18:02
--- NOTE | 2024-02-20 13:21 | DI.RAD.S_ITS ---
PROCEDURE: XR LUMBAR SPINE MIN 4V INDICATIONS: cervicalgia TECHNIQUE: 5 views of the lumbar spine were acquired, including bilateral oblique views. COMPARISON: None. FINDINGS: Bones: 5 nonrib-bearing vertebrae are present. There is normal bony alignment. Mild degenerative endplate changes are noted in lower cervical spine at L3-4 and L4-5 levels. No vertebral body compression fractures. No suspicious bony lesions. Soft tissues: Overlying bowel gas pattern is normal. No suspicious soft tissue calcifications. Oblique images: No pars defects. No significant bony foraminal stenosis. IMPRESSION: No compression fracture or spondylolisthesis. Very mild degenerative endplate changes in lower lumbar spine. No pars defects. No significant bony foraminal stenosis. Dictated by: Delfino Worthy M.D. on 02/20/2024 at 15:06 Approved by: Delfino Worthy M.D. on 02/20/2024 at 15:06
--- NOTE | 2024-02-20 13:21 | DI.RAD.S_ITS ---
PROCEDURE: XR THORACIC SPINE 3V INDICATIONS: cervicalgia TECHNIQUE: 3 views of the thoracic spine were acquired. COMPARISON: None. FINDINGS: Bones: No fractures or dislocations. No suspicious bony lesions. 12 pairs of ribs are noted, and appear intact where visualized. Minimal multilevel thoracic spondylitic changes. No acute compression fractures. Soft tissues: No paravertebral stripe thickening. IMPRESSION: Thoracic spine without acute osseous abnormalities. Minimal multilevel thoracic spondylosis. Dictated by: De Stanton M.D. on 02/21/2024 at 2:14 Approved by: De Stanton M.D. on 02/21/2024 at 2:15
== END ==
PROVIDERS: PCP Physician Assistant; Referring Provider Physician Assistant; Visit Provider Physician Assistant
DX: M47.812 Spondylosis without myelopathy or radiculopathy, cervical region (principal); M50.30 Other cervical disc degeneration, unspecified cervical region; M47.816 Spondylosis without myelopathy or radiculopathy, lumbar region; M54.50 Low back pain, unspecified; G89.29 Other chronic pain
CPT/HCPCS: 72072; 72110; 72141

== ENCOUNTER → 2024-12-12 16:04 | Outpatient (CLI) | payer OTHER, SELFPAY ==
[2023-05-07 04:00] VITALS: BMI 29.0
== END ==
PROVIDERS: PCP Physician Assistant; Visit Provider Chiropractor
DX: R82.90 Unspecified abnormal findings in urine (principal)
CPT/HCPCS: 87077; 87086; 87186